=== PATIENT | male | born 1955 | race Two or more races ===

== ENCOUNTER 2018-06-14 09:54 | Outpatient (CLI) | payer OTHER | END 2018-06-14 10:25 | disposition home or self-care (01) | LOC: RAD 501 09:54 | DX: M25.562 Pain in left knee (principal) ==

== ENCOUNTER → 2018-09-19 | Outpatient (CLI) | payer OTHER | END | disposition home or self-care (01) | LOC: RAD 501 09:52 | DX: M25.512 Pain in left shoulder (principal) ==

== ENCOUNTER 2018-09-20 15:33 | Outpatient (CLI) | payer OTHER | END 2018-09-20 16:16 | disposition home or self-care (01) | LOC: RAD 501 15:33 | DX: M25.511 Pain in right shoulder (principal); M25.512 Pain in left shoulder ==

== ENCOUNTER 2019-04-02 08:58 | Outpatient (CLI) | payer OTHER | END 2019-04-02 09:04 | disposition home or self-care (01) | LOC: RAD 08:58 | DX: M79.641 Pain in right hand (principal) ==

== ENCOUNTER 2020-09-20 10:16 | Outpatient (CLI) | payer OTHER | END 2020-09-20 12:00 | disposition home or self-care (01) | LOC: PPH VACUNA 10:16 | PROVIDERS: ATTEND Emergency Medicine Pediatric Emergency Medicine | DX: Z23 Encounter for immunization (principal) ==

== ENCOUNTER 2020-11-26 06:10 | Day surgery (SDC) | payer OTHER ==
[~2020-11-26 06:10] MED LIST: CRESTOR10 MG PO; ESCITALOPRAM OX20 MG PO; IRBESARTAN150 MG PO; NORVASC2.5 MG PO; SYNTHROID75 MCG PO
[2020-11-26] MEDS ORDERED: PERCOCET 5-3251 EACH PO (11:03)
[2020-11-26] MEDS ORDERED: NEURONTIN600 M1 PO (11:04)
[2020-11-26] MEDS ORDERED: COLACE100 MG PO (11:04)
== END 2020-11-26 14:00 | disposition home or self-care (01) ==
LOC: CIR.AMB 06:10
PROVIDERS: ATTEND Surgery
DX: K40.20 Bilateral inguinal hernia, without obstruction or gangrene, not specified as recurrent (principal); Z20.822 Contact with and (suspected) exposure to COVID-19

== ENCOUNTER 2021-02-21 10:59 | Outpatient (CLI) | payer OTHER ==
[~2021-02-21 10:59] MED LIST changes: +COLACE100 MG PO; +NEURONTIN600 M1 PO; +PERCOCET 5-3251 EACH PO
== END 2021-02-21 11:05 | disposition home or self-care (01) ==
LOC: RAD 10:59
DX: S49.92XA Unspecified injury of left shoulder and upper arm, initial encounter (principal); Y92.89 Other specified places as the place of occurrence of the external cause; X58.XXXA Exposure to other specified factors, initial encounter

== ENCOUNTER 2021-12-17 08:00 | Outpatient (CLI) | payer OTHER | END 2021-12-17 08:30 | disposition home or self-care (01) | LOC: PPH VACUNA 08:00 | PROVIDERS: ATTEND Emergency Medicine Pediatric Emergency Medicine | DX: Z23 Encounter for immunization (principal) ==

== ENCOUNTER 2022-06-11 08:00 | Outpatient (CLI) | payer OTHER | END 2022-06-11 08:05 | disposition home or self-care (01) | LOC: PPH VACUNA 08:00 | PROVIDERS: ATTEND Emergency Medicine Pediatric Emergency Medicine | DX: Z23 Encounter for immunization (principal) ==

== ENCOUNTER 2024-06-04 10:17 | Outpatient (CLI) | payer OTHER | END 2024-06-04 10:30 | disposition home or self-care (01) | LOC: MRI 10:17 | PROVIDERS: ATTEND Psychiatry & Neurology Neurology | DX: R55 Syncope and collapse (principal); E78.5 Hyperlipidemia, unspecified; N28.9 Disorder of kidney and ureter, unspecified; G25.3 Myoclonus | CPT/HCPCS: 70551 ==

== ENCOUNTER 2024-06-04 12:14 | Outpatient (CLI) | payer OTHER | END 2024-06-04 12:16 | disposition home or self-care (01) | LOC: NUCLEAR 12:14 | PROVIDERS: ATTEND Psychiatry & Neurology Neurology | DX: R55 Syncope and collapse (principal); I10 Essential (primary) hypertension; E78.5 Hyperlipidemia, unspecified; R73.03 Prediabetes ==

== ENCOUNTER 2024-06-08 07:04 | Outpatient (CLI) | payer OTHER | END 2024-06-08 07:06 | disposition home or self-care (01) | LOC: NUCLEAR 07:04 | PROVIDERS: ATTEND Internal Medicine Cardiovascular Disease | DX: I11.9 Hypertensive heart disease without heart failure (principal) | CPT/HCPCS: 78452; 93017; A9500 ==

== ENCOUNTER → 2024-06-12 | Outpatient (CLI) | payer OTHER | END | disposition home or self-care (01) | LOC: RAD 09:14 | PROVIDERS: ATTEND Internal Medicine Cardiovascular Disease | DX: I11.9 Hypertensive heart disease without heart failure (principal) ==

== ENCOUNTER 2024-10-12 07:56 | Outpatient (CLI) | payer OTHER | END 2024-10-12 08:11 | disposition home or self-care (01) | LOC: SONOGRAMA 07:56 | PROVIDERS: ATTEND Internal Medicine Nephrology | DX: N18.31 Chronic kidney disease, stage 3a (principal); N40.0 Benign prostatic hyperplasia without lower urinary tract symptoms ==